=== PATIENT | female | born 1945 | race Caucasian/White ===

== ENCOUNTER → 2016-04-18 | Outpatient (CLI) | payer MEDICARE, OTHER ==
[~2016-04-18] MED LIST: CYMBALTA60 MG PO; DEXILANT60 MG PO; GOOD SENSE ASPI81 M1 PO; JANUVIA100 MG PO; LANTUS PEN100 U/ML SC; LIPITOR20 MG PO; LISINOPRIL10 MG PO; LOPRESSOR50 MG PO; NITROSTAT0.4 MG/TAB SL; OCUVITE1 TA1 PO; TOVIAZ8 MG PO; TRAZODONE50 MG PO; ULTRAM50 MG PO; VICTOZA6 MG/ML SC; VITAMIN D50000 IU PO
== END ==
LOC: LAB 11:12
DX: R07.9 Chest pain, unspecified (principal)

== ENCOUNTER → 2016-08-20 | Outpatient (CLI) | payer MEDICARE, OTHER ==
[2014-05-03 18:38] VITALS: BP 104/54
== END ==
LOC: RAD 09:15
DX: Z13.820 Encounter for screening for osteoporosis (principal); Z78.0 Asymptomatic menopausal state; M85.89 Other specified disorders of bone density and structure, multiple sites

== ENCOUNTER → 2016-10-14 | Outpatient (CLI) | payer MEDICARE, OTHER ==
[2014-05-03 18:38] VITALS: BP 104/54
== END ==
LOC: MAMMO 08:21
DX: Z12.31 Encounter for screening mammogram for malignant neoplasm of breast (principal)
CPT/HCPCS: G0202

== ENCOUNTER → 2017-10-28 | Outpatient (CLI) | payer MEDICARE, OTHER ==
[2014-05-03 18:38] VITALS: BP 104/54
[2017-10-28 09:35] LABS: EOS # 0.4 (0.04-0.40); EOS % 4.5 % (1.0-5.0); HEMOGLOBIN 13.1 g/dL (12.5-16.0); LYMPH# 2.6 (1.50-4.00); MEAN CELL VOLUME 91 fl (78-100); MEAN CORPUSCULAR HEMOGLOBIN 30 pg (27-31); MEAN CORPUSCULAR HGB CONC 33 g/dL (33-37); MEAN PLATELET VOLUME 10.4 fl (7.4-10.4); MONO # 0.9 (0.20-0.80); NEU # 5.1 (1.40-6.50); PLATELET COUNT 345 K/mm3 (130-400); RED BLOOD COUNT 4.42 M/mm3 (4.10-5.30); RED CELL DISTRIBUTION WIDTH 13.2 % (11.5-14.5); WHITE BLOOD COUNT 9.1 K/mm3 (4.8-10.8)
[2017-10-28 09:41] LABS: ALBUMIN 4.2 g/dL (3.5-5.0); CALCIUM 9.3 mg/dL (8.4-10.2); POTASSIUM 4.5 mmol/L (3.6-5.0); TOTAL BILIRUBIN 0.6 mg/dL (0.2-1.3); TOTAL PROTEIN 7.6 g/dL (6.3-8.2)
[2017-10-28 10:17] LABS: URINE APPEARANCE CLEAR; URINE BILIRUBIN NEGATIVE (NEGATIVE); URINE BLOOD NEGATIVE (NEGATIVE); URINE COLOR YELLOW; URINE GLUCOSE NEGATIVE (NEGATIVE); URINE KETONE NEGATIVE (NEGATIVE); URINE LEUKOCYTE ESTERASE TRACE (NEGATIVE); URINE NITRATE NEGATIVE (NEGATIVE); URINE PROTEIN(semi-quant) TRACE mg/dL (NEGATIVE); URINE UROBILINOGEN NORMAL (NORMAL)
[2017-10-28 10:18] LABS: URINE MUCUS PRESENT (NOT PRESENT)
== END ==
LOC: RAD 09:01
PROVIDERS: Nurse Practitioner Family
DX: R10.9 Unspecified abdominal pain (principal); C67.9 Malignant neoplasm of bladder, unspecified; N26.1 Atrophy of kidney (terminal); R91.8 Other nonspecific abnormal finding of lung field; Z90.710 Acquired absence of both cervix and uterus; Z90.49 Acquired absence of other specified parts of digestive tract
CPT/HCPCS: Q9967

== ENCOUNTER → 2017-12-09 | Outpatient (CLI) | payer MEDICARE, OTHER ==
[2014-05-03 18:38] VITALS: BP 104/54
== END ==
LOC: MAMMO 08:25
DX: Z12.31 Encounter for screening mammogram for malignant neoplasm of breast (principal)

== ENCOUNTER → 2018-12-14 | Outpatient (CLI) | payer MEDICARE, OTHER ==
[2014-05-03 18:38] VITALS: BP 104/54
== END ==
LOC: MAMMO 09:47
DX: Z12.31 Encounter for screening mammogram for malignant neoplasm of breast (principal)

== ENCOUNTER → 2019-09-20 | Outpatient (CLI) | payer MEDICARE, OTHER ==
[2014-05-03 18:38] VITALS: BP 104/54
== END ==
LOC: RAD 09:39
DX: M51.36 Other intervertebral disc degeneration, lumbar region (principal); M48.061 Spinal stenosis, lumbar region without neurogenic claudication; M47.816 Spondylosis without myelopathy or radiculopathy, lumbar region; S22.080D Wedge compression fracture of T11-T12 vertebra, subsequent encounter for fracture with routine healing

== ENCOUNTER → 2019-09-21 | Outpatient (CLI) | payer MEDICARE, OTHER ==
[2014-05-03 18:38] VITALS: BP 104/54
== END ==
LOC: RAD 14:24 → MAMMO 14:30
DX: M85.80 Other specified disorders of bone density and structure, unspecified site (principal)

== ENCOUNTER → 2019-12-29 | Outpatient (CLI) | payer MEDICARE, OTHER ==
[2014-05-03 18:38] VITALS: BP 104/54
== END ==
LOC: RAD 13:54
DX: M48.061 Spinal stenosis, lumbar region without neurogenic claudication (principal)

== ENCOUNTER → 2021-04-26 | Outpatient (CLI) | payer MEDICARE, OTHER | LOC: RAD 09:51 | DX: C7A.092 Malignant carcinoid tumor of the stomach (principal); R91.8 Other nonspecific abnormal finding of lung field | CPT/HCPCS: Q9967 ==

== ENCOUNTER 2021-06-22 10:15 | Emergency (ER) | payer MEDICARE, OTHER ==
[~2021-06-22] VITALS: Ht 162.6 cm; Wt 65.5 kg
[2021-06-22] MEDS ORDERED: OXYCODONE H5 MG/5 M2 PO (11:40)
[2021-06-22] MEDS ORDERED: DULOXETINE60 MG PO (11:41)
[2021-06-22] MEDS ORDERED: SINGULAIR 110 MG/TAB PO (11:41)
[2021-06-22] MEDS ORDERED: JARDIANCE25 MG PO (11:42)
[2021-06-22] MEDS ORDERED: LOPRESSOR 550 MG/TAB PO (11:43)
[2021-06-22 11:44] LABS: BASO # 0.11 K/mm3 (0.02-0.10); EOS # 0.33 K/mm3 (0.04-0.40); EOS % 1.7 % (1.0-5.0); HEMATOCRIT 32.8 % (37.0-47.0); HEMOGLOBIN 10.6 g/dL (12.5-16.0); LYMPH# 2.36 K/mm3 (1.50-4.00); MEAN CELL VOLUME 90 fl (78-100); MEAN CORPUSCULAR HEMOGLOBIN 29 pg (27-31); MEAN CORPUSCULAR HGB CONC 32 g/dL (33-37); MEAN PLATELET VOLUME 9.2 fl (7.4-10.4); MONO # 1.29 K/mm3 (0.20-0.80); PLATELET COUNT 878 K/mm3 (130-400); RED BLOOD COUNT 3.63 M/mm3 (4.10-5.30); RED CELL DISTRIBUTION WIDTH 14.3 % (11.5-14.5); WHITE BLOOD COUNT 18.9 K/mm3 (4.8-10.8)
[2021-06-22] MEDS ORDERED: ATORVASTATIN CA80 MG PO (11:44)
[2021-06-22] MEDS ORDERED: VICTOZA 3-0.6 MG/0.1 SQ (11:44)
[2021-06-22] MEDS ORDERED: OMEPRAZOLE40 MG PO (11:45)
[2021-06-22] MEDS ORDERED: BASAGLAR K100 UNIT/1 SQ (11:45)
[2021-06-22 11:59] LABS: ALBUMIN 3.8 g/dL (3.4-4.8)
[2021-06-22 12:00] LABS: POTASSIUM 5.4 mmol/L (3.5-5.1)
[2021-06-22 12:02] LABS: TOTAL PROTEIN 7.7 g/dL (6.2-8.1)
[2021-06-22 12:04] LABS: TOTAL BILIRUBIN 0.2 mg/dL (0.2-1.2)
[2021-06-22 13:00] LABS: URINE APPEARANCE CLOUDY; URINE COLOR YELLOW
[2021-06-22 13:01] LABS: PH-URINE 5.5 (5.0 - 8.0); URINE BILIRUBIN NEGATIVE (NEGATIVE); URINE BLOOD 50 ery/uL (NEGATIVE); URINE KETONE NEGATIVE (NEGATIVE); URINE LEUKOCYTE ESTERASE 2+ (NEGATIVE); URINE NITRATE NEGATIVE (NEGATIVE); URINE PROTEIN(semi-quant) NEGATIVE (NEGATIVE); URINE UROBILINOGEN NORMAL (NORMAL); URINE WBC >50 /hpf (0-3)
[2021-06-22] MEDS ORDERED: CEFDINIR300 MG PO (15:43)
[2021-06-22 16:00] VITALS: BP 117/76
== END 2021-06-22 16:00 | disposition home or self-care (01) ==
LOC: ED 10:15
PROVIDERS: Family Medicine
DX: E11.65 Type 2 diabetes mellitus with hyperglycemia (principal); E86.0 Dehydration; Z90.49 Acquired absence of other specified parts of digestive tract; Z90.3 Acquired absence of stomach [part of]; Z79.4 Long term (current) use of insulin
CPT/HCPCS: J0696; J3490; J7030

== ENCOUNTER → 2021-10-18 | Outpatient (CLI) | payer MEDICARE, OTHER ==
[~2021-10-18] MED LIST changes: +ATORVASTATIN CA80 MG PO; +BASAGLAR K100 UNIT/1 SQ; +CEFDINIR300 MG PO; +DULOXETINE60 MG PO; +JARDIANCE25 MG PO; +LOPRESSOR 550 MG/TAB PO; +OMEPRAZOLE40 MG PO; +OXYCODONE H5 MG/5 M2 PO; +SINGULAIR 110 MG/TAB PO; +VICTOZA 3-0.6 MG/0.1 SQ
[2021-10-18 09:48] LABS: BASO # 0.06 K/mm3 (0.02-0.10); EOS # 0.47 K/mm3 (0.04-0.40); EOS % 6.8 % (1.0-5.0); HEMATOCRIT 40.6 % (37.0-47.0); HEMOGLOBIN 12.7 g/dL (12.5-16.0); LYMPH# 2.31 K/mm3 (1.50-4.00); MEAN CELL VOLUME 85 fl (78-100); MEAN CORPUSCULAR HEMOGLOBIN 27 pg (27-31); MEAN CORPUSCULAR HGB CONC 31 g/dL (33-37); MEAN PLATELET VOLUME 10.2 fl (7.4-10.4); MONO # 0.58 K/mm3 (0.20-0.80); NEU # 3.51 K/mm3 (1.40-6.50); PLATELET COUNT 297 K/mm3 (130-400); RED BLOOD COUNT 4.77 M/mm3 (4.10-5.30); RED CELL DISTRIBUTION WIDTH 14.5 % (11.5-14.5); WHITE BLOOD COUNT 6.9 K/mm3 (4.8-10.8)
[2021-10-18 10:02] LABS: ALBUMIN 3.9 g/dL (3.4-4.8)
[2021-10-18 10:04] LABS: CALCIUM 9.7 mg/dL (8.3-10.5)
[2021-10-18 10:07] LABS: TOTAL BILIRUBIN 0.7 mg/dL (0.2-1.2)
== END ==
LOC: RAD 09:00
PROVIDERS: Internal Medicine Hematology & Oncology
DX: C34.91 Malignant neoplasm of unspecified part of right bronchus or lung (principal); C34.92 Malignant neoplasm of unspecified part of left bronchus or lung
CPT/HCPCS: Q9967

== ENCOUNTER → 2022-05-08 | Outpatient (CLI) | payer MEDICARE, OTHER | LOC: RAD 15:47 | DX: Z01.812 Encounter for preprocedural laboratory examination (principal); M51.34 Other intervertebral disc degeneration, thoracic region; M48.02 Spinal stenosis, cervical region; M54.50 Low back pain, unspecified; G89.29 Other chronic pain; Z96.89 Presence of other specified functional implants | CPT/HCPCS: A9575 ==

== ENCOUNTER → 2023-03-03 | Outpatient (CLI) | payer MEDICARE, OTHER ==
[~2023-03-03] MED LIST changes: +AMBIEN5 M1 PO; +ASPIRIN E.C. 8181 MG; +POTASSIUM CHLO20 ME4 PO; +POTASSIUM99 M5
== END ==
LOC: RAD 08:09
DX: N28.89 Other specified disorders of kidney and ureter (principal)
CPT/HCPCS: Q9967

== ENCOUNTER → 2023-10-13 | Outpatient (CLI) | payer MEDICARE, OTHER | LOC: LAB 12:07 | DX: R93.421 Abnormal radiologic findings on diagnostic imaging of right kidney (principal) ==

== ENCOUNTER 2023-10-28 12:19 | Inpatient (IN) | payer MEDICARE, OTHER ==
[~2023-10-28] VITALS: Wt 58.3 kg
[2023-10-29] MEDS ORDERED: VITAMIN D3125 MC2 PO (13:32)
[2023-10-29] MEDS ORDERED: NITROGLYCERIN0.4 M1 SL (13:33)
[2023-10-29] MEDS ORDERED: LIPITOR 80MG80 MG PO (13:33)
[2023-10-29] MEDS ORDERED: CYMBALTA60 M1 PO (13:34)
[2023-10-29] MEDS ORDERED: OCUVITE EYE +1 EACH PO (13:34)
[2023-10-29] MEDS ORDERED: POTASSIUM CHLO20 ME4 PO (13:34)
[2023-10-29] MEDS ORDERED: HAIR, SKIN & N1 EACH PO (13:35)
[2023-10-29] MEDS ORDERED: ALL DAY ALLERGY10 M3 PO (13:36)
[2023-10-29] MEDS ORDERED: OZEMPIC0.25 MG/02 SQ (13:36)
[2023-10-29] MEDS ORDERED: METOPROLOL SUCC25 M1 PO (13:36)
[2023-10-29] MEDS ORDERED: TYLENOL EXTRA500 M2 PO (13:38)
[2023-10-29] MEDS ORDERED: ASPIRIN E.C. 8181 MG (13:38)
[2023-10-29] MEDS ORDERED: CLARITIN-D 10 M1 T24 PO (14:10)
[2023-10-29] MEDS ORDERED: AZO D-MANNOSE500 MG PO (14:12)
[2023-10-29] MEDS ORDERED: Acetaminophen 500 MG TAB PO PRN (14:15)
[2023-10-29] MEDS ORDERED: Polyethylene Glycol 3350 Powder 17 GM PACKET PO PRN (14:15)
[2023-10-29 14:23] VITALS: BP 134/76
[2023-10-29 14:26] VITALS: BP 134/76
[2023-10-29] MEDS ORDERED: oxyCODONE 5 MG TAB PO PRN (14:30)
[2023-10-29] MEDS ORDERED: Glucagon 1 MG VIAL IM PRN (14:45)
[2023-10-29] MEDS ORDERED: Dextrose 50% Water 25 GM/50 ML SYRINGE IV PRN (14:45)
[2023-10-29] MEDS ORDERED: Dextrose (Glucose) 15 GM (4 x 3.75 GM) Chewable TAB PACK PO PRN (14:45)
[2023-10-29] MEDS ORDERED: Insulin Aspart (NovoLOG) SQ SCH (17:00)
[2023-10-29] MEDS ORDERED: Cefuroxime 250 MG TAB PO SCH (21:00)
[2023-10-29] MEDS ORDERED: DULoxetine 30 MG CAP PO SCH (21:00)
[2023-10-30 05:14] VITALS: BP 117/70
[2023-10-30 06:46] LABS: BASO # 0.05 K/mm3 (0.02-0.10); EOS # 0.26 K/mm3 (0.04-0.40); EOS % 2.2 % (1.0-5.0); HEMOGLOBIN 8.6 g/dL (12.5-16.0); LYMPH# 2.15 K/mm3 (1.50-4.00); MEAN CELL VOLUME 88 fl (78-100); MEAN CORPUSCULAR HEMOGLOBIN 29 pg (27-31); MEAN CORPUSCULAR HGB CONC 33 g/dL (33-37); MEAN PLATELET VOLUME 9.4 fl (7.4-10.4); MONO # 1.45 K/mm3 (0.20-0.80); NEU # 7.85 K/mm3 (1.40-6.50); PLATELET COUNT 305 K/mm3 (130-400); RED BLOOD COUNT 2.96 M/mm3 (4.10-5.30); RED CELL DISTRIBUTION WIDTH 13.2 % (11.5-14.5); WHITE BLOOD COUNT 11.8 K/mm3 (4.8-10.8)
[2023-10-30 07:03] LABS: CALCIUM 9.2 mg/dL (8.3-10.5)
[2023-10-30 07:05] LABS: TOTAL PROTEIN 5.9 g/dL (6.2-8.1)
[2023-10-30 07:11] LABS: MAGNESIUM 1.76 mg/dL (1.60-2.60)
[2023-10-30] MEDS ORDERED: Multivitamin TAB PO SCH (09:00)
[2023-10-30] MEDS ORDERED: MULTIVITAMIN PO SCH (09:00)
[2023-10-30] MEDS ORDERED: [UNRECOGNIZED DRUG - OTHER] PO SCH (09:00)
[2023-10-30] MEDS ORDERED: Loratadine 10 MG TAB PO SCH (09:00)
[2023-10-30] MEDS ORDERED: Cholecalciferol (Vit D3) 25 MCG (1,000 Units) TAB PO SCH (09:00)
[2023-10-30 17:08] VITALS: BP 109/70
[2023-10-31 06:05] VITALS: BP 108/67
[2023-10-31 17:06] VITALS: BP 111/65
[2023-11-01 06:04] VITALS: BP 114/71
[2023-11-01 17:00] VITALS: BP 105/68
[2023-11-02 05:07] VITALS: BP 103/52
[2023-11-02 05:40] LABS: BASO # 0.08 K/mm3 (0.02-0.10); EOS # 0.46 K/mm3 (0.04-0.40); EOS % 4.2 % (1.0-5.0); HEMATOCRIT 24.1 % (37.0-47.0); LYMPH# 2.25 K/mm3 (1.50-4.00); MEAN CELL VOLUME 88 fl (78-100); MEAN CORPUSCULAR HEMOGLOBIN 29 pg (27-31); MEAN CORPUSCULAR HGB CONC 33 g/dL (33-37); MONO # 0.94 K/mm3 (0.20-0.80); NEU # 7.27 K/mm3 (1.40-6.50); RED BLOOD COUNT 2.75 M/mm3 (4.10-5.30); RED CELL DISTRIBUTION WIDTH 13.3 % (11.5-14.5); WHITE BLOOD COUNT 11.1 K/mm3 (4.8-10.8)
[2023-11-02 05:52] LABS: PLATELET COUNT 425 K/mm3 (130-400)
[2023-11-02 17:14] VITALS: BP 97/61
[2023-11-03 05:28] VITALS: BP 169/78
[2023-11-03 17:07] VITALS: BP 100/75
[2023-11-04 05:44] VITALS: BP 110/69
[2023-11-04 06:08] LABS: BASO # 0.06 K/mm3 (0.02-0.10); EOS # 0.34 K/mm3 (0.04-0.40); EOS % 3.3 % (1.0-5.0); HEMATOCRIT 26.8 % (37.0-47.0); HEMOGLOBIN 8.5 g/dL (12.5-16.0); LYMPH# 2.75 K/mm3 (1.50-4.00); MEAN CELL VOLUME 91 fl (78-100); MEAN CORPUSCULAR HEMOGLOBIN 29 pg (27-31); MEAN CORPUSCULAR HGB CONC 32 g/dL (33-37); MEAN PLATELET VOLUME 8.7 fl (7.4-10.4); MONO # 0.86 K/mm3 (0.20-0.80); NEU # 6.19 K/mm3 (1.40-6.50); PLATELET COUNT 518 K/mm3 (130-400); RED BLOOD COUNT 2.95 M/mm3 (4.10-5.30); RED CELL DISTRIBUTION WIDTH 13.9 % (11.5-14.5); WHITE BLOOD COUNT 10.3 K/mm3 (4.8-10.8)
[2023-11-04 06:14] LABS: ALBUMIN 3.1 g/dL (3.4-4.8)
[2023-11-04 06:15] LABS: CALCIUM 9.5 mg/dL (8.3-10.5)
[2023-11-04 06:17] LABS: TOTAL PROTEIN 6.2 g/dL (6.2-8.1)
[2023-11-04] MEDS ORDERED: Insulin Lispro (HumaLOG) SQ SCH (12:00)
[2023-11-04 17:29] VITALS: BP 100/64
[2023-11-04] MEDS ORDERED: Atorvastatin 80 MG TAB PO SCH (21:00)
[2023-11-04 22:09] LABS: URINE APPEARANCE CLOUDY (CLEAR); URINE COLOR YELLOW (YELLOW)
[2023-11-04 22:10] LABS: PH-URINE 5.5 (5.0 - 8.0); URINE BILIRUBIN NEGATIVE (NEGATIVE); URINE BLOOD NEGATIVE (NEGATIVE); URINE GLUCOSE NEGATIVE (NEGATIVE); URINE KETONE NEGATIVE (NEGATIVE); URINE LEUKOCYTE ESTERASE 1+ (NEGATIVE); URINE NITRATE POSITIVE (NEGATIVE); URINE PROTEIN(semi-quant) NEGATIVE (NEGATIVE); URINE WBC 16-30 /hpf (0-3)
[2023-11-05 05:59] VITALS: BP 97/61
[2023-11-05] MEDS ORDERED: Cephalexin 500 MG CAP PO SCH (09:00)
[2023-11-05 18:07] VITALS: BP 110/64
[2023-11-05 19:30] VITALS: BP 100/61
[2023-11-06 08:07] VITALS: BP 103/63
[2023-11-06 19:00] VITALS: BP 98/60
[2023-11-07 07:10] VITALS: BP 102/65
[2023-11-07 19:31] VITALS: BP 95/53
[2023-11-08 07:00] VITALS: BP 122/69
[2023-11-08 19:00] VITALS: BP 94/58
[2023-11-09 08:36] VITALS: BP 102/65
[2023-11-09 19:15] VITALS: BP 102/63
[2023-11-10 07:30] VITALS: BP 99/65
[2023-11-10 19:26] VITALS: BP 100/55
[2023-11-11 07:00] VITALS: BP 101/80
[2023-11-11 07:11] LABS: BASO # 0.03 K/mm3 (0.02-0.10); EOS # 0.29 K/mm3 (0.04-0.40); EOS % 3.6 % (1.0-5.0); HEMATOCRIT 29.1 % (37.0-47.0); HEMOGLOBIN 9.2 g/dL (12.5-16.0); LYMPH# 2.12 K/mm3 (1.50-4.00); MEAN CELL VOLUME 91 fl (78-100); MEAN CORPUSCULAR HEMOGLOBIN 29 pg (27-31); MEAN CORPUSCULAR HGB CONC 32 g/dL (33-37); MEAN PLATELET VOLUME 8.8 fl (7.4-10.4); MONO # 0.65 K/mm3 (0.20-0.80); NEU # 4.86 K/mm3 (1.40-6.50); PLATELET COUNT 471 K/mm3 (130-400); RED BLOOD COUNT 3.19 M/mm3 (4.10-5.30); RED CELL DISTRIBUTION WIDTH 15.3 % (11.5-14.5)
[2023-11-11 07:13] LABS: ALBUMIN 3.1 g/dL (3.4-4.8)
[2023-11-11 07:14] LABS: CALCIUM 9.4 mg/dL (8.3-10.5)
[2023-11-11 07:16] LABS: TOTAL PROTEIN 6.2 g/dL (6.2-8.1)
[2023-11-11 07:18] LABS: TOTAL BILIRUBIN 0.5 mg/dL (0.2-1.2)
[2023-11-11 19:21] VITALS: BP 95/59
[2023-11-12 07:00] VITALS: BP 129/72
== END 2023-11-12 09:45 | disposition home or self-care (01) | DRG 862 ==
LOC: MED/SURG 12:19
PROVIDERS: Family Medicine; ADMIT Family Medicine
DX: Z47.1 Aftercare following joint replacement surgery (principal); N39.0 Urinary tract infection, site not specified; S42.402D Unspecified fracture of lower end of left humerus, subsequent encounter for fracture with routine healing; E11.9 Type 2 diabetes mellitus without complications; G24.01 Drug induced subacute dyskinesia; D64.9 Anemia, unspecified; I10 Essential (primary) hypertension; K21.9 Gastro-esophageal reflux disease without esophagitis; J30.9 Allergic rhinitis, unspecified; E78.5 Hyperlipidemia, unspecified; F32.A Depression, unspecified; R53.81 Other malaise; I25.10 Atherosclerotic heart disease of native coronary artery without angina pectoris; Z79.82 Long term (current) use of aspirin; Z85.118 Personal history of other malignant neoplasm of bronchus and lung; Z85.028 Personal history of other malignant neoplasm of stomach
CPT/HCPCS: A9270; J1815

== ENCOUNTER → 2023-11-18 | Outpatient (CLI) | payer MEDICARE, OTHER ==
[~2023-11-18] MED LIST changes: +ALL DAY ALLERGY10 M3 PO; +AZO D-MANNOSE500 MG PO; +CLARITIN-D 10 M1 T24 PO; +CYMBALTA60 M1 PO; +HAIR, SKIN & N1 EACH PO; +LIPITOR 80MG80 MG PO; +METOPROLOL SUCC25 M1 PO; +NITROGLYCERIN0.4 M1 SL; +OCUVITE EYE +1 EACH PO; +OZEMPIC0.25 MG/02 SQ; +TYLENOL EXTRA500 M2 PO; +VITAMIN D3125 MC2 PO
== END ==
LOC: RAD 08:51
DX: S42.492D Other displaced fracture of lower end of left humerus, subsequent encounter for fracture with routine healing (principal); X58.XXXD Exposure to other specified factors, subsequent encounter

== ENCOUNTER 2023-11-23 13:25 | Outpatient (RCR) | payer MEDICARE, OTHER | END 2023-12-10 | disposition home or self-care (01) | LOC: OT | DX: M25.522 Pain in left elbow (principal) ==

== ENCOUNTER 2023-12-14 08:29 | Outpatient (RCR) | payer MEDICARE, OTHER ==
[2024-01-17] MEDS ORDERED: CIPRO500 M1 PO (23:51)
== END 2024-01-09 ==
LOC: PT
DX: S72.002D Fracture of unspecified part of neck of left femur, subsequent encounter for closed fracture with routine healing (principal); S42.402D Unspecified fracture of lower end of left humerus, subsequent encounter for fracture with routine healing; D64.9 Anemia, unspecified; N39.0 Urinary tract infection, site not specified; I10 Essential (primary) hypertension; E11.9 Type 2 diabetes mellitus without complications; I25.10 Atherosclerotic heart disease of native coronary artery without angina pectoris; E83.42 Hypomagnesemia; K21.9 Gastro-esophageal reflux disease without esophagitis; J30.9 Allergic rhinitis, unspecified; X58.XXXD Exposure to other specified factors, subsequent encounter

== ENCOUNTER → 2024-01-13 | Outpatient (CLI) | payer MEDICARE, OTHER | LOC: RAD 07:30 | DX: S72.142D Displaced intertrochanteric fracture of left femur, subsequent encounter for closed fracture with routine healing (principal); X58.XXXD Exposure to other specified factors, subsequent encounter ==